=== PATIENT | male | born 1940 | race Caucasian/White ===

== ENCOUNTER → 2018-07-19 | Day surgery (SDC) | payer OTHER ==
[2018-07-18 13:31] LABS: BASOPHILS # (AUTO) 0.1 (0.0-0.1); BASOPHILS % 0.8 % (0.0-1.0); EOSINOPHILS # (AUTO) 0.1 (0.0-0.4); EOSINOPHILS % 1.6 % (0.0-6.0); HEMATOCRIT 39.3 % (38.2-49.6); HEMOGLOBIN 12.7 g/dL (14.0-18.0); LYMPHOCYTES # (AUTO) 0.9 (1.0-3.2); LYMPHOCYTES % 15.2 % (18.0-39.1); MEAN CORPUSCULAR HGB CONC 32.3 g/dL (31-35); MEAN CORPUSCULAR VOLUME 86.8 fL (81-99); MONOCYTES # (AUTO) 0.6 (0.2-0.8); MONOCYTES % 9.2 % (4.4-11.3); NEUTROPHILS # (AUTO) 4.4 (2.1-6.9); NEUTROPHILS % 72.5 % (38.7-80.0); PLATELET COUNT 237 x10e3/uL (140-360); RED BLOOD COUNT 4.53 x10e6/uL (4.3-5.7); RED CELL DISTRIBUTION WIDTH 14.8 % (11.7-14.4)
[2018-07-18 13:47] LABS: ANION GAP 10.2 mmol/L (8-16); BLOOD UREA NITROGEN 13 mg/dL (7-26); BUN/CREATININE RATIO 14 (6-25); CALCIUM 9.8 mg/dL (8.4-10.2); CARBON DIOXIDE 31 mmol/L (22-29); CHLORIDE 101 mmol/L (98-107); CREATININE, SERUM 0.92 mg/dL (0.72-1.25); EST GLOMERULAR FILTRATION RATE > 60 ML/MIN (60-); GLUCOSE 103 mg/dL (74-118); POTASSIUM 4.2 mmol/L (3.5-5.1); SODIUM 138 mmol/L (136-145)
--- NOTE | 2018-07-18 14:18 | Diagnostic Imaging Report ---
EXAMINATION: CHEST 2 VIEWS INDICATION: Pre-op. COMPARISON: None FINDINGS: TUBES and LINES: None. LUNGS: Lungs are not well inflated. Patchy bibasilar opacities. No evidence of lobar pneumonia or pulmonary edema. PLEURA: No pleural effusion or pneumothorax. HEART AND MEDIASTINUM: The cardiomediastinal silhouette is unremarkable. There are atherosclerotic calcifications within the aorta. BONES AND SOFT TISSUES: No acute osseous abnormality. UPPER ABDOMEN: No free air under the diaphragm. IMPRESSION: Low lung volumes with patchy bibasilar opacities, likely atelectasis. Signed by: Dr. Gabriella Centeno MD on 07/18/2018 2:15 PM
[~2018-07-19] MED LIST: ACTOS30 MG PO; ASPIRIN325 MG PO; BUPIVACAINE 0.5%/EPI 30 ML SDV INJ ONE; CLINDAMYCIN 600MG / 50ML 50 ML IV ONE; DEXAMETHASONE SOD PHOS INJ 4 MG/ML VIAL ONE; FENTANYL CITRATE/PF 100MCG/2 ML INJ ONE; HYZAAR 50-12.51 EACH PO; LIDOCAINE 2%/ EPINEPHRINE 20ML MDV ONE; LIDOCAINE HCL 2% JELLY 5 ML TUBE ONE; LIDOCAINE HCL 2% LOCAL INJ 5 ML SDV VIAL INJ ONE; LIPITOR20 MG PO; LISINOPRIL2.5 MG PO; LYRICA50 MG PO; MIDAZOLAM HCL 2 MG/2 ML VIAL ONE; MYRBETRIQ50 MG PO; ONDANSETRON HCL INJ 2MG/ML 2ML 2 MG/ML VIAL ONE; PIPER-TAZ 3.375 GM 50 ML ONE; PROPOFOL IV EMULSION 10 MG/ML 20 ML VIAL ONE; ROCURONIUM BROMIDE 10 MG/ML 5ML VIAL ONE; SEVOFLURANE INHAL SOLN 250 ML PEN BTL ONE; SUCCINYLCHOLINE 200 MG/10 ML SYR ONE; TOPROL XL25 MG PO; TYLENOL # 31 EA PO; ZANAFLEX4 M1 PO; [UNRECOGNIZED DRUG - OTHER] IM
--- OUTSIDE RECORDS SUMMARY | 2018-07-19 09:43 | XMS REPORT ---
Author Author Luis Smith Organization [employer] Address Unknown Phone Unavailable Care Team Providers Care Tavern Keeper Name Role Phone Luis Smith CP Unavailable Allergies, Adverse Reactions, Alerts Substance Reaction Event Type contrast dye anaphylaxis Drug Allergy Iodine anaphylaxis Drug Allergy Encounters Encounter Location Date CARDIAC [place]. 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 Assessment Pre-operative cardiovascular examination V72.81 Active Medications Medication Code System Code Instructions Start Date End Date Status Dosage Lisinopril [facility] [address]-18 20 MG Orally Once a day Active 1 tablet [facility] [address]-35 12.5 MG Orally Twice a day July 23, 2013 Active 1 tablet with food Zoloft Unknown 0 100 mg Oral Active 2 tab Hydrochiorothiazide Unknown 0 12.5 mg Active take one a day Tylenol/Codeine #3 [facility] [address]-22 Orally every 6 hrs Active 1 tablet as needed Core[facility] [address]-84 12.5 MG Orally Twice a day Active 1 tablet with food Social History Social History Element Qualifiers Date Reported Diet: no. June 24, 2015 Pets: none. cats: 0 dogs: 1 June 24, 2015 Marital Status: . June 24, 2015 Caffeine: yes. frequency: 3 cups of coffe AM 1 cup in afternoon June 24, 2015 Exercise: no. June 24, 2015 Smoking: . Are you a: Former smoker Quit in 1977June 24, 2015 Alcohol: no. June 24, 2015 Vital Signs Date/Time: Apr 24, 2014 Weight 255 lbs Cardiac Monitoring Heart Rate 100 /min Blood Pressure Diastolic 68 mm Hg Blood Pressure Systolic 118 mm Hg Summary Purpose eClinicalWorks Submission
--- OUTSIDE RECORDS SUMMARY | 2018-07-19 09:43 | XMS REPORT | Clinical Summary ---
Author Author Barry [facility] Organization [facility] Address Unknown Phone Unavailable Care Team Providers Care Cafe Attendant Name Role Phone Malina Pringle MD PCP Allergies Comments Active Allergy Reactions Severity Noted Date Iodine And Iodide 01/28/2017 Containing Products Medications End Date Status Medication Sig Dispensed Refills Start Date Active INVOKANA 300 mg tablet 0 7 Active TRULICITY 1.5 mg/0.5 mL 0 pen injector 7 Active glimepiride (AMARYL) 2 MG 0 tablet 7 Active lisinopril-hydrochlorothi 0 azide 7 (PRINZIDE,ZESTORETIC) 20-12.5 mg per tablet Active meloxicam (MOBIC) 15 mg TAKE 1 TABLET 3 tablet (15 MG) BY 7 MOUTH TWICE DAILY NEEDED FOR ARTHRITIS PAIN Active metFORMIN (GLUCOPHAGE) 0 1,000 mg tablet 7 Active metoprolol succinate XL 0 (TOPROL-XL) 25 mg 24 hr 7 tablet Active pioglitazone (ACTOS) 30 0 MG tablet 7 Active sertraline (ZOLOFT) 100 TAKE 1-1/2 0 MG tablet TABLETS 7 (150MG) BY MOUTH ONCE DAILY Active Problems Problem Noted Date Ear pain, left 01/28/2017 Acute otitis externa of left ear 01/28/2017 Social History Date Tobacco Use Types Packs/Day Years Used Never Assessed Sex Assigned at Date Recorded Not on file Industry Job Start Date Occupation Not on file Not on file Not on file Travel End Travel History Travel Start No recent travel history available. Last Filed Vital Signs Not on file Plan of Treatment Health Maintenance Due Date Last Done Comments SHINGLES VACCINES (#1) 08/11/1989 65+ PNEUMOCOCCAL VACCINE 08/11/2004 (1 of 2 - PCV13) PNEUMOCOCCAL 08/11/2004 POLYSACCHARIDE VACCINE AGE 65 AND OVER INFLUENZA VACCINE 10/12/2018 Results Not on fileafter 07/18/2017 Insurance Payer Benefit Subscriber ID Type Phone Address Plan / Group [employer] xxxxxxxxx [facility] Advance Directives Patient has advance care planning documents on file. For more information, emmett olguin contact: Jhonny Gonzalez [address] [place] [address]
--- OUTSIDE RECORDS SUMMARY | 2018-07-19 09:43 | XMS REPORT ---
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
--- OUTSIDE RECORDS SUMMARY | 2018-07-19 09:43 | XMS REPORT ---
Author Author Luis Smith Organization [employer] Address Unknown Phone Unavailable Care Team Providers Care Lodge Officer Name Role Phone Luis Smith CP Unavailable Allergies, Adverse Reactions, Alerts Substance Reaction Event Type contrast dye anaphylaxis Drug Allergy Iodine anaphylaxis Drug Allergy Encounters Encounter Location Date F/U 1 YR Luis [place], [place] June 04, 2015 Problems Problem Type Condition ICD-9 Code Onset Dates Condition Status Assessment Benign hypertensive heart disease without congestive heart failure I11.9 Active Assessment Supraventricular tachycardia I47.1 Active Problem 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 June 24, 2015 Vital Signs Date/Time: June 04, 2015 Weight 254 lbs Cardiac Monitoring Heart Rate 112 /min Blood Pressure Diastolic 66 mm Hg Blood Pressure Systolic 122 mm Hg Summary Purpose [employer]Works Submission
--- OUTSIDE RECORDS SUMMARY | 2018-07-19 09:43 | XMS REPORT ---
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
--- OUTSIDE RECORDS SUMMARY | 2018-07-19 09:43 | XMS REPORT ---
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 Problem DM w/o complication type II, uncontrolled E11.65 Active Assessment DM w/o complication type II, uncontrolled E11.65 Active Assessment 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 Assessment Supraventricular tachycardia I47.1 Active Assessment Benign hypertensive heart disease without congestive heart failure I11.9 Active Medications Medication Code System Code Instructions Start Date End Date Status Dosage Lisinopril ND 46315438793 20 MG Orally Once a day Active 1 tablet Zoloft NDC 0 100 mg Oral Active 1 tab Lipitor NDC 0 Active not defined Toprol XL NDC 03115192700 25 MG Orally as directed Active 2 tablets in AM and 1 tablet in PM Tylenol/Codeine #3 ND 69790788643 Orally every 6 hrs Active 1 tablet as needed Metoprolol Succinate ER ND 31119151494 25 MG Orally Once a day Active TAKE 2 TABLETS BY MOUTH EVERY MORNING AND TAKE 1 TABLET BY MOUTH EVERY EVENING DIRECTED Vital Signs Date/Time: Feb 06, 2018 BMI 38.45 Index Weight 268 lbs Height 5'10" in Cardiac Monitoring Heart Rate 72 /min Blood Pressure Diastolic 74 mm Hg Blood Pressure Systolic 124 mm Hg Results No Known Results Summary Purpose eClinicalWorks Submission
--- OUTSIDE RECORDS SUMMARY | 2018-07-19 09:43 | XMS REPORT ---
Author Author Luis Smith Organization [employer] Address Unknown Phone Unavailable Care Team Providers Care Telecommunications Field Technician Name Role Phone Luis Smith CP Unavailable Allergies, Adverse Reactions, Alerts Substance Reaction Event Type contrast dye anaphylaxis Drug Allergy Iodine anaphylaxis Drug Allergy Encounters Encounter Location Date CARDIAC CLR. Luis [place], [place] Apr 24, 2014 Pt would like to see AA reg heart pump Luis Smith MD, [place] July 23, 2013 F/U 1 YR Luis Smith MD, [place] [...] Instructions Start Date End Date Status Dosage Hydrochiorothiazide Unknown 0 12.5 mg Active take one a day Lisinopril [facility] [address]-76 20 MG Orally Once a day Active 1 tablet Coreg [facility] [address]-94 12.5 MG Orally Twice a day July [...] no. June 24, 2015 Vital Signs Date/Time: July 23, 2013 Weight 255 lbs Cardiac Monitoring Heart Rate 96 /min Blood Pressure Diastolic 88 mm Hg Blood Pressure Systolic 136 mm Hg Summary Purpose eClinicalWorks Submission
--- OUTSIDE RECORDS SUMMARY | 2018-07-19 09:43 | XMS REPORT ---
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 Assessment Benign hypertensive heart disease without congestive heart failure I11.9 Active Problem DM w/o complication type II, uncontrolled E11.65 Active Assessment Other symptoms involving cardiovascular system R09.89 Active Assessment DM w/o complication type II, uncontrolled E11.65 Active Assessment Supraventricular tachycardia I47.1 Active Assessment 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 Medications Medication Code System Code Instructions Start Date End Date Status Dosage Lisinopril ND 90878162998 20 MG Orally Once a day Active 1 tablet Tylenol/Codeine #3 ND 03274157585 Orally every 6 hrs Active 1 tablet as needed Zoloft NDC 0 100 mg Oral Active 2 tab Toprol XL NDC 26587669178 25 MG Orally Once a day October 06, 2016 Active 1 tablet Vital Signs Date/Time: October 06, 2016 BMI 37.30 Index Weight 260 lbs Height 5'10" in Cardiac Monitoring Heart Rate 104 /min Blood Pressure Diastolic 80 mm Hg Blood Pressure Systolic 124 mm Hg Results No Known Results Summary Purpose eClinicalWorks Submission
--- OUTSIDE RECORDS SUMMARY | 2018-07-19 09:43 | XMS REPORT ---
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 Assessment Benign hypertensive heart disease without congestive heart failure I11.9 Active Assessment Other symptoms involving cardiovascular system R09.89 Active Assessment Supraventricular tachycardia I47.1 Active Medications Medication Code System Code Instructions Start Date End Date Status Dosage Metoprolol Succinate ER ND 08464403560 25 MG Orally Once a day Active TAKE 2 TABLETS BY MOUTH EVERY MORNING AND TAKE 1 TABLET BY MOUTH EVERY EVENING DIRECTED Tylenol/Codeine #3 ND 47044736301 Orally every 6 hrs Active 1 tablet as needed Toprol XL NDC 22658571043 25 MG Orally as directed Active 2 tablets in AM and 1 tablet in PM Lisinopril NDC 49010862365 20 MG Orally Once a day Active 1 tablet Zoloft NDC 0 100 mg Oral Active 1 tab Vital Signs Date/Time: Jan 25, 2018 BMI 38.45 Index Weight 268 lbs Height 5'10" in Cardiac Monitoring Heart Rate 72 /min Blood Pressure Diastolic 62 mm Hg Blood Pressure Systolic 112 mm Hg Results No Known Results Summary Purpose eClinicalWorks Submission
--- OUTSIDE RECORDS SUMMARY | 2018-07-19 09:43 | XMS REPORT ---
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
--- OUTSIDE RECORDS SUMMARY | 2018-07-19 09:43 | XMS REPORT ---
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 June 24, 2015 Summary Purpose eClinicalWorks Submission
--- OUTSIDE RECORDS SUMMARY | 2018-07-19 09:43 | XMS REPORT ---
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
--- OUTSIDE RECORDS SUMMARY | 2018-07-19 09:43 | XMS REPORT ---
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
--- OUTSIDE RECORDS SUMMARY | 2018-07-19 09:43 | XMS REPORT ---
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 Assessment Other symptoms involving cardiovascular system R09.89 Active Problem DM w/o complication type II, uncontrolled E11.65 Active Assessment Supraventricular tachycardia I47.1 Active Assessment DM w/o complication type II, uncontrolled E11.65 Active Assessment 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 Assessment Benign hypertensive heart disease without congestive heart failure I11.9 Active Medications Medication Code System Code Instructions Start Date End Date Status Dosage Lisinopril ND 31544354742 20 MG Orally Once a day Active 1 tablet Tylenol/Codeine #3 [facility] 25681598806 Orally every 6 hrs Active 1 tablet as needed Toprol XL NDC 61091579383 25 MG Orally Once a day Active 1 tablet Zoloft NDC 0 100 mg Oral Active 2 tab Vital Signs Date/Time: Nov 03, 2016 BMI 37.30 Index Weight 260 lbs Height 5'10" in Cardiac Monitoring Heart Rate 100 /min Blood Pressure Diastolic 76 mm Hg Blood Pressure Systolic 142 mm Hg Results No Known Results Summary Purpose eClinicalWorks Submission
--- OUTSIDE RECORDS SUMMARY | 2018-07-19 09:43 | XMS REPORT | Continuity of Care Document ---
Author Author [facility] Interface Address Unknown Phone Unavailable Problems Problem Status Onset Date Classification Date Reported Comments Source Benign hypertensive heart disease without heart failure Active Problem 07/04/2018 Luis Smith Benign hypertensive heart disease without congestive heart failure Active Diagnosis 07/04/2018 Luis Smith DM w/o complication type II, uncontrolled Active Problem 07/04/2018 Luis Smith Other symptoms involving cardiovascular system Active Diagnosis 07/04/2018 Luis Smith Supraventricular tachycardia Active Diagnosis 07/04/2018 Luis Smith Atherosclerosis of [place] arteries of extremity with intermittent claudication Active Diagnosis 01/30/2017 Luis Smith Atheroscler of [place] artery of both legs with intermit claudication Active Diagnosis 07/04/2018 Luis Smith Supraventricular premature beats Active Diagnosis 04/15/2016 Luis Smith Pre-operative cardiovascular examination Active Diagnosis 04/15/2016 Luis Smith Medications Medication Details Route Status Patient Instructions Ordering Provider Order Date Source Toprol XL 1 tablet Orally Active 25 MG Orally Once a day med 10/06/2016 Luis Smith Coreg 1 tablet with food Orally Active 12.5 MG Orally Twice a day med 07/23/2013 Luis Smith Lisinopril 1 tablet Orally Active 20 MG Orally Once a day Luis Smith Tylenol/Codeine #3 1 tablet as needed Orally Active Orally every 6 hrs Luis Smith Zoloft 1 tab Oral Active 100 mg Oral stacie Smith Toprol XL 2 tablets in AM and 1 tablet in PM Orally Active 25 MG Orally as directed Luis Smith Metoprolol Succinate ER TAKE 2 TABLETS BY MOUTH EVERY MORNING AND TAKE 1 TABLET BY MOUTH EVERY EVENING DIRECTED Orally Active 25 MG Orally Once a day Luis Smith Toprol XL 3 tablet in AM Orally Active 25 MG Orally as directed Luis Smith Tylenol/Codeine #3 1 tablet as needed Orally Active Orally every 6 hrs Luis Smith Lisinopril 1 tablet Orally Active 20 MG Orally Once a day [facility] Ahmed Ahmed Zoloft 2 tab Oral Active 100 mg Oral Arinmed Arinmed Ahmed Hydrochiorothiazide take one a day NA Active 12.5 mg Ahmed Arinmed Ahmed Coreg 1 tablet with food Orally Active 12.5 MG Orally Twice a day Arinmed Arinmed Ahmed Lipitor not defined NA Active Ahmed Ahmed Ahmed Allergies, Adverse Reactions, Alerts Substance Category Reaction Severity Reaction type Status Date Reported Comments Source contrast dye Adverse Reaction anaphylaxis Adverse Reaction Active 07/25/2017 Ahmed Ahmed Iodine Adverse Reaction anaphylaxis Adverse Reaction Active 02/06/2018 Ahmed Ahmed Immunizations Immunization Date Given Site Status Last Updated Comments Source Results Order Name Results Value Reference Range Date Interpretation Comments Source Vital Signs Vital Sign Value Date Comments Source Weight 268 02/06/2018 Ahmed Ahmed Heart Rate 72 02/06/2018 Ahmed Ahmed Diastolic (mm Hg) 74 02/06/2018 Ahmed Ahmed Systolic (mm Hg) 124 02/06/2018 Ahmed Ahmed Weight 268 01/25/2018 Ahmed Ahmed Heart Rate 72 01/25/2018 Ahmed Ahmed Diastolic (mm Hg) 62 01/25/2018 Ahmed Ahmed Systolic (mm Hg) 112 01/25/2018 Ahmed Ahmed Weight 260 07/25/2017 Ahmed Ahmed Heart Rate 100 07/25/2017 Ahmed Ahmed Diastolic (mm Hg) 76 07/25/2017 Ahmed Ahmed Systolic (mm Hg) 126 07/25/2017 Ahmed Ahmed Weight 265 05/05/2017 Ahmed Ahmed Heart Rate 74 05/05/2017 Ahmed Ahmed Diastolic (mm Hg) 78 05/05/2017 Ahmed Ahmed Systolic (mm Hg) 124 05/05/2017 Ahmed Ahmed Weight 258 01/24/2017 Ahmed Ahmed Heart Rate 88 01/24/2017 Ahmed Ahmed Diastolic (mm Hg) 80 01/24/2017 Ahmed Ahmed Systolic (mm Hg) 128 01/24/2017 Ahmed Ahmed Weight 260 11/03/2016 Ahmed Ahmed Heart Rate 100 11/03/2016 Ahmed Ahmed Diastolic (mm Hg) 76 11/03/2016 Ahmed Ahmed Systolic (mm Hg) 142 11/03/2016 Ahmed Ahmed Weight 260 10/06/2016 Ahmed Ahmed Heart Rate 104 10/06/2016 Ahmed Ahmed Diastolic (mm Hg) 80 10/06/2016 Ahmed Ahmed Systolic (mm Hg) 124 10/06/2016 Ahmed Ahmed Weight 254 06/24/2015 Ahmed Ahmed Heart Rate 112 06/24/2015 Ahmed Ahmed Diastolic (mm Hg) 86 06/24/2015 Ahmed Ahmed Systolic (mm Hg) 124 06/24/2015 Ahmed Ahmed Weight 254 06/04/2015 Ahmed Ahmed Heart Rate 112 06/04/2015 Ahmed Ahmed Diastolic (mm Hg) 66 06/04/2015 Ahmed Ahmed Systolic (mm Hg) 122 06/04/2015 Ahmed Ahmed Weight 255 04/24/2014 Ahmed Ahmed Heart Rate 100 04/24/2014 Ahmed Ahmed Diastolic (mm Hg) 68 04/24/2014 Ahmed Ahmed Systolic (mm Hg) 118 04/24/2014 Ahmed Ahmed Weight 255 07/23/2013 Ahmed Ahmed Heart Rate 96 07/23/2013 Ahmed Ahmed Diastolic (mm Hg) 88 07/23/2013 Ahmed Ahmed Systolic (mm Hg) 136 07/23/2013 Ahmed Ahmed Encounters Location Location Details Encounter Type Encounter Number Reason For Visit Attending Provider ADM Date DC Date Status Source Luis Smith MD, PA Pt would like to see AA reg heart pump [id number] 07/23/2013 07/23/2013 Luis Smith MD, PA CARDIAC CLR. [id number] 04/24/2014 04/24/2014 Luis Smith MD, PA CARDIAC CLR. [id number] 04/24/2014 04/24/2014 Luis Smith MD, PA F/U 1 YR [id number] 06/04/2015 06/04/2015 Luis Smith MD, PA F/U 1 YR [id number] 06/04/2015 06/04/2015 Luis Smith MD, PA F/U 1 YR [id number] 06/04/2015 06/04/2015 Luis Smith MD, PA F/U 1 YR [id number] 06/04/2015 06/04/2015 Luis Smith MD, PA F/U 1 YR [id number] 06/04/2015 06/04/2015 Luis Smith MD, PA PEMA [id number] 06/24/2015 06/24/2015 Luis Smith MD, PA PEMA [id number] 06/24/2015 06/24/2015 Luis Smith MD, PA PEMA [id number] 06/24/2015 06/24/2015 Luis Smith MD, PA PEMA [id number] 06/24/2015 06/24/2015 Luis Smith MD, PA f/u testing [id number] 06/24/2015 06/24/2015 Luis Smith MD, PA f/u testing [id number] 06/24/2015 06/24/2015 Luis Smith MD, PA f/u testing [id number] 06/24/2015 06/24/2015 Luis Smith MD, PA f/u testing [id number] 06/24/2015 06/24/2015 Luis Smith Procedures Procedure Code Date Perfomer Comments Source
--- OUTSIDE RECORDS SUMMARY | 2018-07-19 09:43 | XMS REPORT ---
Author Author Luis Smith Organization [employer] Address Unknown Phone Unavailable Care Team Providers Care Reinforcing Steel Placer Name Role Phone Luis Smith CP Unavailable Allergies No Known Allergies Problems Problem Type Condition Code Onset Dates Condition Status Problem Benign hypertensive heart disease without heart failure 402.10 Active Problem DM w/o complication type II, uncontrolled E11.65 Active Medications Medication Code System Code Instructions Start Date End Date Status Dosage Metoprolol Succinate ER [facility] [id number] 25 MG Orally BID Active 1 tablet Results No Known Results Summary Purpose [employer] Submission
--- OUTSIDE RECORDS SUMMARY | 2018-07-19 09:43 | XMS REPORT ---
Author Author Luis Smith Organization [employer] Address Unknown Phone Unavailable Care Team Providers Care Aegis Console Operator Track Name Role Phone Luis Smith CP Unavailable Allergies, Adverse Reactions, Alerts Substance Reaction Event Type contrast dye anaphylaxis Drug Allergy Iodine anaphylaxis Drug Allergy Problems Problem Type Condition Code Onset Dates Condition Status Problem Benign hypertensive heart disease without heart failure 402.10 Active Assessment Other symptoms involving cardiovascular system R09.89 Active Problem DM w/o complication type II, uncontrolled E11.65 Active Assessment Benign hypertensive heart disease without congestive heart failure I11.9 Active Assessment DM w/o complication type II, uncontrolled E11.65 Active Assessment Supraventricular tachycardia I47.1 Active Assessment Atheroscler of [place] artery of both legs with intermit claudication I70.213 Active Medications Medication Code System Code Instructions Start Date End Date Status Dosage Zoloft NDC 0 100 mg Oral Active 2 tab Tylenol/Codeine #3 NDC 67769719818 Orally every 6 hrs Active 1 tablet as needed Toprol XL NDC 77604238928 25 MG Orally as directed Active 2 tablets in AM and 1 tablet in PM Lisinopril NDC 24945694004 20 MG Orally Once a day Active 1 tablet Vital Signs Date/Time: Jan 24, 2017 BMI 37.02 Index Weight 258 lbs Height 5'10" in Cardiac Monitoring Heart Rate 88 /min Blood Pressure Diastolic 80 mm Hg Blood Pressure Systolic 128 mm Hg Results No Known Results Summary Purpose [employer] Submission
--- OUTSIDE RECORDS SUMMARY | 2018-07-19 09:43 | XMS REPORT ---
Author Author Luis Smith Organization [employer] Address Unknown Phone Unavailable Care Team Providers Care Preanalytics Team Lead Name Role Phone Luis Smith CP Unavailable Allergies No Known Allergies Problems Problem Type Condition Code Onset Dates Condition Status Problem Benign hypertensive heart disease without heart failure 402.10 Active Problem DM w/o complication type II, uncontrolled E11.65 Active Medications Medication Code System Code Instructions Start Date End Date Status Dosage Metoprolol Succinate ER [facility] [id number] 25 MG Orally Once a day Active TAKE 2 TABLETS BY MOUTH EVERY MORNING AND TAKE 1 TABLET BY MOUTH EVERY EVENING DIRECTED Results No Known Results Summary Purpose [employer] Submission
--- OUTSIDE RECORDS SUMMARY | 2018-07-19 09:44 | XMS REPORT ---
Author Author [facility] Address Unknown Phone Unavailable Care Team Providers Care Research Manager Name Role Phone MARION SANTIAGO Unavailable Unavailable Problems This patient has no known problems. Allergies, Adverse Reactions, Alerts This patient has no known allergies or adverse reactions. Medications This patient has no known medications. Results Test Description Test Time Test Comments Text Results Atomic Results Result Comments CHEST 2 VIEWS 2018-07-18 14:13:00 [facility] [address] [address] Patient Name: NARA RUVALCABA MR #: [id number] : 1940 Age/Sex: 77/M Req #: [id number] Adm Physician: Ordered by: MARION SANTIAGO MD Report #: [id number] Location: OR Room/Bed: Procedure: [id number] DX/CHEST 2 VIEWS Exam Date: 07/18/18 Exam Time: 1312 REPORT STATUS: Signed EXAMINATION: CHEST 2 VIEWS INDICATION: Pre-op. COMPARISON: None FINDINGS: TUBES and LINES: None. LUNGS: Lungs are not well inflated. Patchy bibasilar opacities. No evidence of lobar pneumonia or pulmonary edema. PLEURA: No pleural effusion or pneumothorax. HEART AND MEDIASTINUM: The cardiomediastinal silhouette is unremarkable. There are atherosclerotic calcifications within the aorta. BONES AND SOFT TISSUES: No acute osseous abnormality. UPPER ABDOMEN: No free air under the diaphragm. IMPRESSION: Low lung volumes with patchy bibasilar opacities, likely atelectasis. Signed by: Dr. Nyla Domingo MD on 07/18/2018 2:15 PM Dictated By: NYLA DOMINGO MD 1415 Transcribed By: LEOAR on 07/18/18 1415 COPY TO: MARION SANTIAGO MD
[2018-07-19 14:20] VITALS: BP 120/71
--- NOTE | 2018-07-26 06:47 | Operative Report ---
DATE OF PROCEDURE: 07/19/2018 SURGEON: Patrice Newman MD PREOPERATIVE DIAGNOSIS: Refractory urge incontinence. POSTOPERATIVE DIAGNOSIS: Refractory urge incontinence. OPERATION PERFORMED: 1. Complete InterStim system implantation with incision and implantation of tined quadripolar lead electrodes into the left foramen S3. 2. Fluoroscopic guidance for needle placement. 3. Supervision of fluoroscopy, no radiologist present. 4. Subcutaneous implantation of sacral nerve neurostimulator. 5. Electronic analysis and complex programming. ANESTHESIA: General. COMPLICATIONS: None. CLINICAL SUMMARY: Osmin Schilling is a 77-year-old man with a very complicated urological history. The patient has refractory urge incontinence. He has failed medications. He had an excellent response to percutaneous outpatient InterStim testing and elected to well over 50% response of decreasing his incontinence, urgency, and frequency. The patient had nearly complete urinary control. He elected to proceed with surgery as planned. He is aware of the risks of bleeding, infection, injury to adjacent structures, need for additional procedures and elected to proceed. OPERATIVE PROCEDURE IN DETAIL: Informed consent was verified. Osmin Schilling was properly identified, taken to the operating room, where anesthesia was uneventfully begun. The patient was then carefully gently repositioned in the prone position with all pressure points carefully well padded. His back and buttocks were prepared and draped in usual sterile fashion. A needle was then introduced into the left foramen S3. Depth of needle was confirmed and adjusted fluoroscopically. Proper needle position was confirmed by direct observation of the lifting of the perineum or "bellowing" and direct observation of the plantar flexion of the great toe utilizing the external test stimulator box. The needle stylet was then removed and a directional guidewire was then placed and confirmed fluoroscopically. The foraminal needle was then removed. An incision was made peripherally to the directional guidewire and the dilator introducer sheath was then placed over the directional guidewire and directed into the foramen until the opaque marker of the dilator was seen in the midpoint of the sacrum. The dilator obturator was unlocked and removed. The lead was then placed through the introducer sheath to the first white line. The position was then checked fluoroscopically. The lead was then further advanced until the electrodes were visible anterior to the sacrum. Each electrode was then tested with the findings noted as above. After satisfactory positioning was confirmed, under continuous fluoroscopy, the introducer sheath was retracted thus deploying the lead tines into the parasacral tissue. Further incision was then made into the subcutaneous tissue posterior to the iliac crest and a pocket for the neurostimulator was created. The tunneling tool was then utilized to take the newly placed lead to the pocket site. The tunneling tool was then removed. The lead was fed through the tube and pulled into the pocket site. The lead was then cleansed of bodily fluids with sterile water and then dried very thoroughly. The lead was then placed into the pulse generator head with the metal bands were aligned and the blue tip clearly visible in the distal portion of the pulse generator header. The single set screw was tightened with a hex wrench. The pulse generator was then placed into the subcutaneous pocket following copiously irrigating all the incisions. The programming head was then placed over the implanted neurostimulator. All impedance parameters were appropriate. Both incisions were then approximated in 2 layers utilizing absorbable sutures. Mastisol, Steri-Strips, and Bioclusive dressings were applied. The patient was then uneventfully reversed from anesthesia and taken to recovery room in stable condition. There were no complications of the procedure. The patient tolerated the procedure well. Sponge, needle, and instrument counts were of course correct x2 at the end of the case. Estimated blood loss was minimal. Utilizing the clinician robot programmer, the patient was then programmed to the lead of optimum sensation and given explicit instructions in utilizing the patient robot programmer prior to discharge. Plans will be to follow the patient up in the office, at which point in time, we will re-evaluate the patient's impedance and possibly reprogram as needed. Patrice MD Paty [place]/MODL /[id number] cc: Dr. Mojgan Jones
== END | disposition home or self-care (01) ==
LOC: OR 09:15
PROVIDERS: ATTEND Urology
DX: N39.46 Mixed incontinence (principal); N32.81 Overactive bladder; N32.0 Bladder-neck obstruction; N39.0 Urinary tract infection, site not specified; E29.1 Testicular hypofunction; N50.0 Atrophy of testis; E66.9 Obesity, unspecified; K42.9 Umbilical hernia without obstruction or gangrene; E11.9 Type 2 diabetes mellitus without complications; K27.9 Peptic ulcer, site unspecified, unspecified as acute or chronic, without hemorrhage or perforation; J44.9 Chronic obstructive pulmonary disease, unspecified; G47.30 Sleep apnea, unspecified; I10 Essential (primary) hypertension; F32.9 Major depressive disorder, single episode, unspecified; Z88.5 Allergy status to narcotic agent; Z01.810 Encounter for preprocedural cardiovascular examination; Z01.812 Encounter for preprocedural laboratory examination; Z01.818 Encounter for other preprocedural examination; Z79.82 Long term (current) use of aspirin; Z68.37 Body mass index [BMI] 37.0-37.9, adult; Z85.46 Personal history of malignant neoplasm of prostate
CPT/HCPCS: 36415 ×2; 64581; 64590; 71046; 76000; 80048; 82948; 85025; 93005; 95972; C1778; C1894; J1100; J2001 ×3; J2250; J2405; J2543; J2704; L8679

== ENCOUNTER → 2019-12-14 | Day surgery (SDC) | payer OTHER ==
[2019-12-11 14:32] LABS: BASOPHILS # (AUTO) 0.1 (0.0-0.1); EOSINOPHILS # (AUTO) 0.1 (0.0-0.4); EOSINOPHILS % 1.9 % (0.0-6.0); HEMATOCRIT 41.1 % (38.2-49.6); HEMOGLOBIN 13.4 g/dL (14.0-18.0); LYMPHOCYTES # (AUTO) 0.8 (1.0-3.2); MEAN CORPUSCULAR HEMOGLOBIN 26.9 pg (28-32); MEAN CORPUSCULAR HGB CONC 32.6 g/dL (31-35); MEAN CORPUSCULAR VOLUME 82.4 fL (81-99); MONOCYTES # (AUTO) 0.4 (0.2-0.8); MONOCYTES % 7.5 % (4.4-11.3); NEUTROPHILS # (AUTO) 4.4 (2.1-6.9); NEUTROPHILS % 75.3 % (38.7-80.0); PLATELET COUNT 228 x10e3/uL (140-360); RED BLOOD COUNT 4.99 x10e6/uL (4.3-5.7)
[2019-12-11 14:47] LABS: ANION GAP 14.3 mmol/L (8-16); BLOOD UREA NITROGEN 12 mg/dL (7-26); BUN/CREATININE RATIO 11 (6-25); CALCIUM 9.2 mg/dL (8.4-10.2); CARBON DIOXIDE 28 mmol/L (22-29); CHLORIDE 101 mmol/L (98-107); CREATININE, SERUM 1.11 mg/dL (0.72-1.25); EST GLOMERULAR FILTRATION RATE > 60 ML/MIN (60-); GLUCOSE 376 mg/dL (74-118); POTASSIUM 4.3 mmol/L (3.5-5.1); SODIUM 139 mmol/L (136-145)
[~2019-12-14] MED LIST changes: +B&O 60MG R/S 60 MG SUPP PR ONE; +BOTULINUM TOXIN TYPE A 100 UNIT VIAL IM ONE; -BUPIVACAINE 0.5%/EPI 30 ML SDV INJ ONE; +CBD PO; +CEFTRIAXONE SOD 1 GM/NS 50 ML 50 ML IV ONE; -CLINDAMYCIN 600MG / 50ML 50 ML IV ONE; +CYMBALTA20 MG PO; +GLUCOSAMINE1000 MG PO; +INSULIN REGULAR, HUMAN 100 UNIT/1 ML 3ML VIAL ONE; +IOPAMIDOL 300MG/ML 50ML INFUS..BTL IV ONE; -LIDOCAINE 2%/ EPINEPHRINE 20ML MDV ONE; -LIDOCAINE HCL 2% JELLY 5 ML TUBE ONE; +METFORMIN HCL500 MG PO; -MIDAZOLAM HCL 2 MG/2 ML VIAL ONE; +OZEMPIC0.25 MG/0. SC; -PIPER-TAZ 3.375 GM 50 ML ONE; -ROCURONIUM BROMIDE 10 MG/ML 5ML VIAL ONE; -SUCCINYLCHOLINE 200 MG/10 ML SYR ONE
[2019-12-14 16:10] VITALS: BP 161/104
== END | disposition home or self-care (01) ==
LOC: OR 11:28
PROVIDERS: ATTEND Urology
DX: N39.46 Mixed incontinence (principal); C61 Malignant neoplasm of prostate; N32.81 Overactive bladder; N39.0 Urinary tract infection, site not specified; N35.919 Unspecified urethral stricture, male, unspecified site; J45.909 Unspecified asthma, uncomplicated; N32.0 Bladder-neck obstruction; E29.1 Testicular hypofunction; N50.0 Atrophy of testis; E66.9 Obesity, unspecified; K42.9 Umbilical hernia without obstruction or gangrene; G47.33 Obstructive sleep apnea (adult) (pediatric); G89.29 Other chronic pain; E11.9 Type 2 diabetes mellitus without complications; I10 Essential (primary) hypertension; F32.9 Major depressive disorder, single episode, unspecified; Z91.041 Radiographic dye allergy status; Z01.810 Encounter for preprocedural cardiovascular examination; Z01.812 Encounter for preprocedural laboratory examination; Z01.818 Encounter for other preprocedural examination; Z11.59 Encounter for screening for other viral diseases; Z79.82 Long term (current) use of aspirin; Z79.84 Long term (current) use of oral hypoglycemic drugs; Z96.82 Presence of neurostimulator
CPT/HCPCS: 36415 ×2; 52005; 52287; 71046; 74420; 80048; 82948; 85025; 93005; C1758; J0587; J0696; J1100; J2001; J2405; J2704; J3010; Q9967; U0002; J1817

== ENCOUNTER → 2020-01-11 | Day surgery (SDC) | payer OTHER ==
[2020-01-08 11:08] LABS: BASOPHILS # (AUTO) 0.1 (0.0-0.1); EOSINOPHILS # (AUTO) 0.1 (0.0-0.4); EOSINOPHILS % 1.8 % (0.0-6.0); HEMATOCRIT 40.2 % (38.2-49.6); HEMOGLOBIN 13.1 g/dL (14.0-18.0); LYMPHOCYTES # (AUTO) 0.9 (1.0-3.2); MEAN CORPUSCULAR HEMOGLOBIN 27.2 pg (28-32); MEAN CORPUSCULAR HGB CONC 32.6 g/dL (31-35); MEAN CORPUSCULAR VOLUME 83.4 fL (81-99); MONOCYTES # (AUTO) 0.4 (0.2-0.8); MONOCYTES % 6.8 % (4.4-11.3); NEUTROPHILS # (AUTO) 4.5 (2.1-6.9); NEUTROPHILS % 74.7 % (38.7-80.0); PLATELET COUNT 224 x10e3/uL (140-360); RED BLOOD COUNT 4.82 x10e6/uL (4.3-5.7); RED CELL DISTRIBUTION WIDTH 13.6 % (11.7-14.4)
[2020-01-08 11:31] LABS: ANION GAP 14.3 mmol/L (8-16); BLOOD UREA NITROGEN 16 mg/dL (7-26); BUN/CREATININE RATIO 16 (6-25); CALCIUM 9.1 mg/dL (8.4-10.2); CARBON DIOXIDE 27 mmol/L (22-29); CHLORIDE 102 mmol/L (98-107); CREATININE, SERUM 0.98 mg/dL (0.72-1.25); EST GLOMERULAR FILTRATION RATE > 60 ML/MIN (60-); GLUCOSE 248 mg/dL (74-118); POTASSIUM 4.3 mmol/L (3.5-5.1); SODIUM 139 mmol/L (136-145)
[~2020-01-11] MED LIST changes: -B&O 60MG R/S 60 MG SUPP PR ONE; -BOTULINUM TOXIN TYPE A 100 UNIT VIAL IM ONE; +BUPIVACAINE HCL 0.5% INJ 30 ML VIAL INJ ONE; +CEFAZOLIN SOD 1 GM/NS 50ML 50 ML IV ONE; -CEFTRIAXONE SOD 1 GM/NS 50 ML 50 ML IV ONE; -DEXAMETHASONE SOD PHOS INJ 4 MG/ML VIAL ONE; -IOPAMIDOL 300MG/ML 50ML INFUS..BTL IV ONE; +LIDOCAINE 2%/ EPINEPHRINE 20ML MDV ONE; +MIDAZOLAM HCL 2 MG/2 ML VIAL ONE; -ONDANSETRON HCL INJ 2MG/ML 2ML 2 MG/ML VIAL ONE; +PHENYLEPHRINE HCL 1% 10 MG/ML VIAL ONE
[2020-01-11 12:15] VITALS: BP 130/74
== END | disposition home or self-care (01) ==
LOC: OR 09:47
PROVIDERS: ATTEND Urology
DX: Z45.42 Encounter for adjustment and management of neurostimulator (principal); N39.46 Mixed incontinence; N32.81 Overactive bladder; E29.1 Testicular hypofunction; N32.0 Bladder-neck obstruction; N39.0 Urinary tract infection, site not specified; N50.0 Atrophy of testis; R81 Glycosuria; N35.919 Unspecified urethral stricture, male, unspecified site; G47.33 Obstructive sleep apnea (adult) (pediatric); E66.9 Obesity, unspecified; I45.10 Unspecified right bundle-branch block; K42.9 Umbilical hernia without obstruction or gangrene; I10 Essential (primary) hypertension; E11.9 Type 2 diabetes mellitus without complications; J45.909 Unspecified asthma, uncomplicated; F32.9 Major depressive disorder, single episode, unspecified; Z91.041 Radiographic dye allergy status; Z01.810 Encounter for preprocedural cardiovascular examination; Z01.812 Encounter for preprocedural laboratory examination; Z11.59 Encounter for screening for other viral diseases; Z79.82 Long term (current) use of aspirin; Z79.84 Long term (current) use of oral hypoglycemic drugs; Z85.46 Personal history of malignant neoplasm of prostate
CPT/HCPCS: 36415 ×2; 64585; 64595; 71046; 80048; 82948; 85025; 88300; J0690; J2001 ×2; J2250; J2370; J2704; J3010; U0002; J1817